=== PATIENT | male | born 1975 | race Caucasian/White ===

== ENCOUNTER 2018-01-13 07:57 | Emergency (ER) | payer OTHER ==
[~2018-01-13] VITALS: Ht 180.3 cm; Wt 97.1 kg
[~2018-01-13 07:57] MED LIST: AMLO5TAB PO; ORE25 PO; PAX20 PO
[2018-01-13 08:03] VITALS: BP 148/110
--- NOTE | 2018-01-13 08:11 | NUR ---
PT AMBULATES TO BED 4
--- NOTE | 2018-01-13 08:12 | NUR ---
42 [facility] C/O LT ARM PAIN, RADIATING TO UPPER CHEST AND NECK PAIN. NUMBING 5/10 PAIN SCALE, PT DENIES ANY SOB FEVER COUGH OR ABD PAIN AT THIS TIME. PT WITH SUPERFICIAL TIGHTNESS IN UPPER L CHEST. LS CLEAR THROUGHOUT, BS ACTIVE X4 ABD SOFT AND NON TENDER. SKIN APPROPRITE FOR ETHNICITY/DRY/ELESTIC. AAOX4 ER MD MADE AWARE, WILL CONTINUE TO MONITOR.
--- NOTE | 2018-01-13 08:15 | NUR ---
DR ARORA EVALUATING AT BEDSIDE
[2018-01-13] MEDS ORDERED: KETOROLAC 60 MG/2 ML VIAL IM ONE (08:20)
[2018-01-13 09:00] VITALS: BP 144/88
--- NOTE | 2018-01-13 09:00 | NUR ---
Patient discharged with v/s stable. Written and verbal after care instructions given and explained. Patient alert, oriented and verbalized understanding of instructions. Ambulatory with steady gait. All questions addressed prior to discharge. ID band removed. Patient advised to follow up with PMD. Rx of ATRAX, MOTRIN, PAXIL, NORCO given. Patient educated on indication of medication including possible reaction and side effects. Opportunity to ask questions provided and answered.
== END 2018-01-13 08:11 | disposition home or self-care (01) ==
LOC: MED 07:57
DX: F41.9 Anxiety disorder, unspecified (principal); R07.89 Other chest pain; R06.02 Shortness of breath; Z79.899 Other long term (current) drug therapy
CPT/HCPCS: 81002; 93005; 96372; 99284; J1885

== ENCOUNTER 2018-04-05 18:11 | Emergency (ER) | payer OTHER ==
[~2018-04-05] VITALS: Ht 180.3 cm; Wt 106.6 kg
[2018-04-05 18:20] VITALS: BP 135/97
--- NOTE | 2018-04-05 18:41 | NUR ---
PATIENT PRESENTS TO ED WITH the chief c/o left lower chest pain that started since this morning at 1000 am. PT STATES PAIN RADIATES TO LEFT HEAD, BACK AND SHOULDER. HAS TINGLIN SENSATION AND NUMBNESS IN HIS LEFT HAND FINGERS. PT USED TO HAVE CHEST PAIN BEFORE BUT THIS TIME IS DIFFERENT. DENIES N/V/D. HAS DIZZINESS. SKIN IS PINK/WARM/DRY; AAOX4 WITH EVEN AND STEADY GAIT; LUNGS CLEAR BL; HR EVEN AND REGULAR; PT DENIES ANY FEVER, SOB, OR COUGH AT THIS TIME. O2 SATURATION 98% IN ROOM AIR. PATIENT STATES PAIN OF 8/10 AT THIS TIME; VSS; PATIENT POSITIONED FOR COMFORT; HOB ELEVATED; BEDRAILS UP X2; BED DOWN. ER MD MADE AWARE OF PT STATUS.
[2018-04-05 18:48] LABS: BASOPHILS % (AUTO) 0.5 % (0.0-2.0); EOSINOPHILS # (AUTO) 0.2 K/uL (0-0.4); EOSINOPHILS % (AUTO) 2.9 % (0.0-4.0); HEMOGLOBIN 14.1 g/dL (12.0-18.0); LYMPHOCYTES # (AUTO) 1.5 K/uL (2.0-11.5); MEAN CORPUSCULAR HEMOGLOBIN 28 pg (27-31); MEAN CORPUSCULAR HGB CONC 33 g/dL (33-37); MEAN CORPUSCULAR VOLUME 84.8 fL (80-94); MONOCYTES # (AUTO) 0.5 K/uL (0.8-1.0); MONOCYTES % (AUTO) 8.4 % (1.7-9.3); NEUTROPHILS # (AUTO) 3.3 K/uL (1.8-7.7); NEUTROPHILS % (AUTO) 61.2 % (42.2-75.2); PLATELET COUNT (AUTO) 209 K/uL (140-450); RED BLOOD CELL COUNT(AUTO) 5.07 MIL/uL (4.20-6.10); RED CELL DISTRIBUTION WIDTH 14.2 % (11.6-13.7); WHITE BLOOD COUNT (AUTO) 5.5 K/uL (4.8-10.8)
[2018-04-05 19:04] LABS: ANION GAP 11.7 (8-16); CARBON DIOXIDE 27.7 mmol/L (21-32); POTASSIUM 4.4 mmol/L (3.5-5.1)
[2018-04-05 19:10] LABS: ALBUMIN 4.1 g/dL (3.4-5.0); TOTAL BILIRUBIN 0.3 mg/dL (0.0-1.0)
--- NOTE | 2018-04-05 19:10 | NUR ---
PT SITTING UP IN BED, VSS. PT STATED THAT HE IS HAVING SOME PAIN, 11/29. ER MD MADE AWARE OF STATUS.
--- NOTE | 2018-04-05 19:10 | NUR ---
REPORT GIVEN TO KENNEL OPERATOR RN FOR CONTINUITY OF CARE.
[2018-04-05 19:13] LABS: PROTHROMBIN TIME 9.8 secs (10.8-13.4)
[2018-04-05] MEDS ORDERED: KETOROLAC 30 MG/ML VIAL IVP ONE (19:15)
[2018-04-05] MEDS ORDERED: ASPIRIN 81 MG TAB.CHEW PO ONE (19:15)
--- NOTE | 2018-04-05 19:56 | NUR ---
Dr. Ibrahim evaluating patient at bedside.
--- NOTE | 2018-04-05 20:20 | NUR ---
ALL RESULTS BACK AND NOTED BY ERMD AND FOR D/C
[2018-04-05 20:30] VITALS: BP 130/90
--- NOTE | 2018-04-05 20:30 | NUR ---
Patient discharged with v/s stable. Written and verbal after care instructions given and explained. Patient alert, oriented and verbalized understanding of instructions. Ambulatory with steady gait. All questions addressed prior to discharge. ID band removed. Patient advised to follow up with PMD. Rx of IBUPROFEN 600MG, [id number]. given. Patient educated on indication of medication including possible reaction and side effects. Opportunity to ask questions provided and answered.
== END 2018-04-05 20:30 | disposition home or self-care (01) ==
LOC: MED 18:11
DX: R07.89 Other chest pain (principal); F41.9 Anxiety disorder, unspecified; F32.9 Major depressive disorder, single episode, unspecified; F17.200 Nicotine dependence, unspecified, uncomplicated; Z88.8 Allergy status to other drugs, medicaments and biological substances
CPT/HCPCS: 36415; 71045; 80053; 83880; 84484; 85025; 85610; 85730; 93005; 96374; 99284; J1885

== ENCOUNTER 2019-02-05 07:47 | Emergency (ER) | payer OTHER ==
[~2019-02-05] VITALS: Ht 175.3 cm; Wt 100.3 kg
[2019-02-05 07:56] VITALS: BP 162/101
[2019-02-05] MEDS ORDERED: ASPIRIN 81 MG TAB.CHEW PO ONE (08:00)
[2019-02-05] MEDS ORDERED: NITROGLYCERIN 2% 1 GM PKT TP ONE (08:00)
[2019-02-05] MEDS ORDERED: LORazepam 2 MG/ML VIAL IVP ONE (08:00)
[2019-02-05 08:13] LABS: BASOPHILS % (AUTO) 0.6 % (0.0-2.0); EOSINOPHILS # (AUTO) 0.2 K/uL (0-0.4); HEMOGLOBIN 15.3 g/dL (12.0-18.0); LYMPHOCYTES # (AUTO) 1.9 K/uL (2.0-11.5); LYMPHOCYTES % (AUTO) 31.9 % (20.5-51.1); MEAN CORPUSCULAR HEMOGLOBIN 29 pg (27-31); MEAN CORPUSCULAR HGB CONC 34 g/dL (33-37); MEAN CORPUSCULAR VOLUME 85.2 fL (80-94); MONOCYTES # (AUTO) 0.5 K/uL (0.8-1.0); MONOCYTES % (AUTO) 8.1 % (1.7-9.3); NEUTROPHILS # (AUTO) 3.4 K/uL (1.8-7.7); NEUTROPHILS % (AUTO) 56.4 % (42.2-75.2); PLATELET COUNT (AUTO) 219 K/uL (140-450); RED BLOOD CELL COUNT(AUTO) 5.29 MIL/uL (4.20-6.10); RED CELL DISTRIBUTION WIDTH 13.8 % (11.6-13.7)
[2019-02-05 08:29] LABS: MAGNESIUM 1.8 mg/dL (1.8-2.4)
[2019-02-05 08:31] LABS: ANION GAP 16.1 (8-16); CARBON DIOXIDE 21.3 mmol/L (21-32); CREATININE 0.9 mg/dL (0.7-1.3); POTASSIUM 3.4 mmol/L (3.5-5.1)
[2019-02-05 08:37] LABS: TOTAL BILIRUBIN 0.3 mg/dL (0.0-1.0)
[2019-02-05 08:52] LABS: C-REACTIVE PROTEIN QUANT < 0.2 mg/dL (0.0-0.9)
[2019-02-05 08:57] LABS: D-DIMER < 100 ng/ml (0-400); PROTHROMBIN TIME 8.8 secs (10.8-13.4)
[2019-02-05 10:02] VITALS: BP 112/82
[2019-02-05 11:36] LABS: BARBITURATE, URINE NEG. ng/ml (NEG <=200); BENZODIAZEPINE, URINE NEG. ng/mL (NEG <=200); CANNABINOID, URINE NEG. ng/mL (NEG <=50); COCAINE, URINE NEG. ng/mL (NEG <=300); OPIATE, URINE NEG. ng/mL (NEG <=2000); PHENCYCLIDINE SCREEN,URINE NEG. ng/mL (NEG <=25)
== END 2019-02-05 10:00 | disposition home or self-care (01) ==
LOC: MED 07:47
DX: R07.89 Other chest pain (principal); R00.2 Palpitations; F10.129 Alcohol abuse with intoxication, unspecified; F41.9 Anxiety disorder, unspecified
CPT/HCPCS: 36415; 71045; 80053; 80305; 83735; 83880; 84484; 85025; 85379; 85610; 86140; 96374; 99284; G0482; J2060; Q0092; 93005

== ENCOUNTER 2019-06-09 08:10 | Emergency (ER) | payer OTHER ==
[~2019-06-09] VITALS: Ht 172.7 cm; Wt 95.3 kg
[2019-06-09 08:22] VITALS: BP 144/92
--- NOTE | 2019-06-09 08:36 | NUR ---
EKG READS SR, HR 64, GIVEN TO DR TRUJILLO TO READ
[2019-06-09 08:50] LABS: BASOPHILS # (AUTO) 0.1 K/uL (0.00-0.22); BASOPHILS % (AUTO) 1.2 % (0.0-2.0); EOSINOPHILS # (AUTO) 0.2 K/uL (0-0.4); EOSINOPHILS % (AUTO) 4.1 % (0.0-4.0); HEMATOCRIT 43.7 % (36-52); HEMOGLOBIN 15.1 g/dL (12.0-18.0); LYMPHOCYTES % (AUTO) 38.8 % (20.5-51.1); MEAN CORPUSCULAR HEMOGLOBIN 28 pg (27-31); MEAN CORPUSCULAR HGB CONC 35 g/dL (33-37); MEAN CORPUSCULAR VOLUME 81.6 fL (80-94); MONOCYTES # (AUTO) 0.4 K/uL (0.8-1.0); MONOCYTES % (AUTO) 7.8 % (1.7-9.3); NEUTROPHILS # (AUTO) 2.5 K/uL (1.8-7.7); NEUTROPHILS % (AUTO) 48.1 % (42.2-75.2); PLATELET COUNT (AUTO) 189 K/uL (140-450); RED BLOOD CELL COUNT(AUTO) 5.36 MIL/uL (4.20-6.10); RED CELL DISTRIBUTION WIDTH 13.5 % (11.6-13.7); WHITE BLOOD COUNT (AUTO) 5.1 K/uL (4.8-10.8)
[2019-06-09 09:02] LABS: ALBUMIN 3.9 g/dL (3.4-5.0); ANION GAP 9.6 (8-16); CARBON DIOXIDE 29.6 mmol/L (21-32); POTASSIUM 4.2 mmol/L (3.5-5.1); TOTAL BILIRUBIN 0.4 mg/dL (0.0-1.0)
--- NOTE | 2019-06-09 09:53 | NUR ---
Denies pain. VSS. No EKG changes. Awaiting labs
[2019-06-09 10:36] VITALS: BP 129/87
--- NOTE | 2019-06-09 10:37 | NUR ---
Stable. VSS. Afebrile. Denies discomfort. MD has reassessed and Dc'd home To exit.
== END 2019-06-09 10:37 | disposition home or self-care (01) ==
LOC: MED 08:10
DX: R07.89 Other chest pain (principal); F41.9 Anxiety disorder, unspecified
CPT/HCPCS: 36415; 71045; 80053; 83880; 84484; 85025; 93005; 99285; Q0092

== ENCOUNTER 2019-09-12 13:12 | Emergency (ER) | payer OTHER ==
[~2019-09-12] VITALS: Ht 172.7 cm; Wt 95.3 kg
[2019-09-12 13:18] VITALS: BP 165/102
--- NOTE | 2019-09-12 13:35 | NUR ---
Jose Luis arreola in [facility] - 09/12/19 at 1346 by MED 43/M c/o chest pain and SOB for the past 5 days on and off. Patient
--- NOTE | 2019-09-12 13:35 | NUR ---
43/M presents to ED with complaints of chest pain with SOB for the past 5 days. Pt states the chest pain has been on and off. Pt also c/o feels like his throat is dry and feels like he cannot catch his breath, symptoms worsening today. Pt states he took half an Xanax, unknown dose with no improvement. Pt states he has taken xanax in the past for anxiety but does not feel improvement today. 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 VSS.
--- NOTE | 2019-09-12 13:55 | NUR ---
LAB AT BEDSIDE.
[2019-09-12 14:03] LABS: BASOPHILS % (AUTO) 0.4 % (0.0-2.0); EOSINOPHILS # (AUTO) 0.2 K/uL (0-0.4); EOSINOPHILS % (AUTO) 2.8 % (0.0-4.0); HEMATOCRIT 44.8 % (36-52); HEMOGLOBIN 15.1 g/dL (12.0-18.0); LYMPHOCYTES # (AUTO) 1.6 K/uL (2.0-11.5); LYMPHOCYTES % (AUTO) 28.6 % (20.5-51.1); MEAN CORPUSCULAR HEMOGLOBIN 29 pg (27-31); MEAN CORPUSCULAR HGB CONC 34 g/dL (33-37); MEAN CORPUSCULAR VOLUME 84.7 fL (80-94); MONOCYTES # (AUTO) 0.4 K/uL (0.8-1.0); MONOCYTES % (AUTO) 7.1 % (1.7-9.3); NEUTROPHILS # (AUTO) 3.3 K/uL (1.8-7.7); NEUTROPHILS % (AUTO) 61.1 % (42.2-75.2); PLATELET COUNT (AUTO) 204 K/uL (140-450); RED BLOOD CELL COUNT(AUTO) 5.29 MIL/uL (4.20-6.10); RED CELL DISTRIBUTION WIDTH 14.5 % (11.6-13.7); WHITE BLOOD COUNT (AUTO) 5.5 K/uL (4.8-10.8)
--- NOTE | 2019-09-12 14:10 | NUR ---
PT AMBULATED TO RESTROOM.
[2019-09-12 14:13] LABS: ANION GAP 14.5 (8-16); CARBON DIOXIDE 27.6 mmol/L (21-32); CREATININE 1.1 mg/dL (0.6-1.3); POTASSIUM 4.1 mmol/L (3.5-5.1)
--- NOTE | 2019-09-12 14:15 | NUR ---
PT AMBULATED TO BEDSIDE.
[2019-09-12 14:19] LABS: ALBUMIN 3.9 g/dL (3.4-5.0); TOTAL BILIRUBIN 0.4 mg/dL (0.0-1.0)
--- NOTE | 2019-09-12 14:23 | NUR ---
VS ARE STABLE. PT RESTING AT BEDSIDE. RESPIRATION ARE EVEN AND UNLABORED. WILL CONTINUE TO MONITOR.
--- NOTE | 2019-09-12 14:49 | NUR ---
INFLUENZA SWAB COLLECTED
--- NOTE | 2019-09-12 15:40 | NUR ---
Patient discharged with v/s stable. BP 150/88. MD AWARE. PT DENIES DIZZINESS OR HEADACHE. Written and verbal after care instructions given and explained. Patient verbalized understanding. Ambulatory with steady gait. All questions addressed prior to discharge. Advised to follow up with PMD.
[2019-09-12 15:43] VITALS: BP 150/88
== END 2019-09-12 15:40 | disposition home or self-care (01) ==
LOC: MED 13:12
DX: R07.89 Other chest pain (principal); F17.200 Nicotine dependence, unspecified, uncomplicated; Z71.6 Tobacco abuse counseling
CPT/HCPCS: 36415; 71045; 80053; 84484; 85025; 87804; 93005; 99285

== ENCOUNTER 2023-07-30 18:15 | Emergency (ER) | payer SELFPAY ==
[~2023-07-30] VITALS: Ht 180.3 cm; Wt 99.8 kg
[2023-07-30 18:28] VITALS: BP 156/112; PULSE 107; RESP 18; TEMP 98.3; O2SAT 99
[2023-07-30 21:02] LABS: APPEARANCE,URINE CLEAR (CLEAR); BILIRUBIN,URINE NEGATIVE (NEGATIVE); BLOOD, URINE NEGATIVE (NEGATIVE); COLOR,URINE YELLOW (YELLOW); LEUKOCYTE ESTERASE ,URINE NEGATIVE (NEGATIVE); NITRITE, URINE NEGATIVE (NEGATIVE); PROTEIN,URINE NEGATIVE (NEGATIVE); UGLUCOSE 3+ (NEGATIVE)
[2023-07-30 21:20] LABS: BASOPHILS % (AUTO) 0.3 % (0.0-2.0); EOSINOPHILS # (AUTO) 0.1 K/uL (0-0.4); EOSINOPHILS % (AUTO) 0.8 % (0.0-4.0); HEMOGLOBIN 14.8 g/dL (12.0-18.0); LYMPHOCYTES # (AUTO) 1.7 K/uL (2.0-11.5); LYMPHOCYTES % (AUTO) 18.5 % (20.5-51.1); MEAN CORPUSCULAR HEMOGLOBIN 30 pg (27-31); MEAN CORPUSCULAR HGB CONC 35 g/dL (33-37); MONOCYTES # (AUTO) 0.8 K/uL (0.8-1.0); MONOCYTES % (AUTO) 8.9 % (1.7-9.3); NEUTROPHILS # (AUTO) 6.6 K/uL (1.8-7.7); NEUTROPHILS % (AUTO) 71.5 % (42.2-75.2); PLATELET COUNT (AUTO) 230 K/uL (140-450); RED BLOOD CELL COUNT(AUTO) 4.94 MIL/uL (4.20-6.10); RED CELL DISTRIBUTION WIDTH 14.3 % (11.6-13.7); WHITE BLOOD COUNT (AUTO) 9.2 K/uL (4.8-10.8)
[2023-07-30 21:31] LABS: ANION GAP 11.3 (8-16); CALCIUM 8.5 mg/dL (8.5-10.1); CARBON DIOXIDE 31.4 mmol/L (21-32); CREATININE 1.1 mg/dL (0.6-1.3); POTASSIUM 3.7 mmol/L (3.5-5.1)
[2023-07-30 21:38] LABS: ALBUMIN 3.4 g/dL (3.4-5.0); BILIRUBIN,DIRECT 0.2 mg/dL (0.0-0.3); TOTAL BILIRUBIN 0.8 mg/dL (0.0-1.0); TOTAL PROTEIN, SERUM 7.3 g/dL (6.4-8.2)
[2023-07-30 22:00] VITALS: O2SAT 99
[2023-07-30] MEDS ORDERED: ONDA-188 PO (23:04)
[2023-07-30] MEDS ORDERED: FAMO-92 PO (23:04)
== END 2023-07-30 23:08 | disposition home or self-care (01) ==
LOC: MED 18:15
DX: K29.20 Alcoholic gastritis without bleeding (principal); Z79.899 Other long term (current) drug therapy
CPT/HCPCS: 36415; 80048; 80076; 81003; 83690; 85025; 99283